=== PATIENT | female | born 1970 | race African-American/Black ===

== ENCOUNTER 2017-07-13 17:26 | Emergency (ER) | payer OTHER ==
[~2017-07-13] VITALS: Ht 167.6 cm; Wt 128.0 kg
[2017-07-13] MEDS ORDERED: ROBITUSSIN AC,T10 ML PO (20:54)
[2017-07-13] MEDS ORDERED: DOXYCYCLINE HY100 MG PO (20:54)
[2017-07-13 21:10] VITALS: BP 120/82
== END 2017-07-13 21:13 | disposition home or self-care (01) ==
LOC: EME 17:26
PROVIDERS: Emergency Medicine
DX: J20.9 Acute bronchitis, unspecified (principal); F17.200 Nicotine dependence, unspecified, uncomplicated
CPT/HCPCS: 71020; 87502